=== PATIENT | female | born 1995 | race African-American/Black ===

== ENCOUNTER 2024-11-29 20:02 | Observation (INO) | payer OTHER, SELFPAY ==
[2024-11-29] VITALS (28 sets, daily range): BP systolic 113–162; BP diastolic 74–103; PULSE 102–147; TEMP 37; O2SAT 84–100; BMI 29.7
--- NOTE | 2024-11-29 20:05 | ECG_ITS ---
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
--- NOTE | 2024-11-29 20:06 | CT_ITS ---
The [address] [address] Patient Name: GUTIERREZ CHISHOLM MRN: [id number] date: 1995 Sex: F Assigned Patient Location: ER Current Patient Location: Accession/Order Number: [id number] Exam Date: 11/29/2024 21:51 Report Date: 11/29/2024 22:22 At the request of: MILKA DOWELL Procedure: CT head/brain wo con EXAMINATION: CT head/brain wo con HISTORY: fall, seizure COMPARISON: None. TECHNIQUE: CT head without intravenous contrast. Dose reduction techniques were achieved by using: automated exposure control and/or adjustment of mA and /or kV according to patient size and/or use of iterative reconstruction technique. FINDINGS: The ventricles and sulci are within normal limits in size and configuration for age. There is no evidence for acute intracranial hemorrhage. There are no foci of abnormal parenchymal attenuation. There is no mass effect or midline shift. There are no abnormal extraaxial fluid collections. CT/CT head/brain wo con IMPRESSION: Negative for acute intracranial hemorrhage or acute intracranial process. Electronically authenticated by: ATTILA STRATTON Date: 11/29/2024 22:22
--- NOTE | 2024-11-29 20:08 | ED.GENADUL1 ---
HPI HPI - General Adult General Chief complaint: Seizure Stated complaint: SEIZURE Time Seen by Provider: 11/29/24 20:05 History of Present Illness HPI narrative: 29-year-old female to the emergency department with chief complaint of seizure. Patient reports she has had a seizure in the past and used to take gabapentin for this. She does not recall the exact details of her workup for this. Patient reports that she is currently at [facility] for alcohol detox/rehabilitation. EMS reports that staff heard the patient fall out of bed and witnessed her having a generalized tonic-clonic seizure lasting approximately 1 to 2 minutes. No medications were given per the EMS report. Patient was postictal upon their arrival but her mental status is significantly improved at the time of arrival in the ER. Patient has no complaints at this time. Her last drink was this morning. She reports that she previously drank 1 pint a day of hard liquor. Related Data Home Medications ?Medication ?Instructions ?Recorded ?Confirmed gabapentin 300 mg capsule 300 mg PO TID 11/29/24 11/29/24 Allergies Allergy/AdvReac Type Severity Reaction Status Date / Time latex Allergy Intermediate Rash Verified 11/29/24 20:11 Opioid HPI Opioid Management Most Recent Opioid Data: Ur Phencyclidine Scrn Negative (NEGATIVE) 11/29/24 21:30 11/29/24 Review of Systems ROS Status of ROS 10 or more systems reviewed and unremarkable except as noted in history and below PFSH PFSH Social History Little interest or pleasure in doing things: not at all Feeling down, depressed, or hopeless: not at all Exam Narrative Exam Narrative: VITALS: I have reviewed the triage vital signs. GENERAL: Well developed, well appearing adult in no acute distress. NEURO: Alert and oriented. Moves all extremities. Face is symmetric and expressive. Tremor. EYES: PERRL. No scleral icterus or conjunctival injection. No discharge. HENT: Normocephalic, atraumatic. Hearing is grossly intact. Nares grossly patent and without discharge. Mucous membranes moist. NECK: No JVD. Patient moves neck without restriction. No midline cervical tenderness. CARDIO: Rhythm regular. Normal rate. No murmur, rub, or gallop. Pulses equal bilaterally in the upper and lower extremity. No lower extremity edema. PULM: Lungs clear to auscultation in all higuera. No wheezes, rales, or rhonchi. No conversational dyspnea. No splinting, stridor, or accessory muscle use. GI/: Abdomen is soft and non-tender. Normoactive bowel sounds. EXTREMITIES: Symmetric muscle bulk. No joint swelling. No clubbing, cyanosis, or deformity. SKIN: Warm and dry. Normal turgor. No rash or lesions appreciated. PSYCH: Mood, affect, and interaction is appropriate to the setting. Constitutional Vital Signs, click to edit/add: Last Vital Signs Temp 98.6 F 11/29/24 20:04 Pulse 117 H 11/30/24 00:11 Resp 20 11/30/24 00:11 BP 140/87 11/30/24 00:11 Pulse Ox 97 11/30/24 00:11 O2 Del Method Room Air 11/30/24 00:11 O2 Flow Rate 2 11/29/24 22:25 Course Vital Signs Vital signs: Vital Signs Temperature 98.6 F 11/29/24 20:04 Pulse Rate 102 H 11/29/24 20:04 Respiratory Rate 20 11/29/24 20:04 Blood Pressure 162/103 H 11/29/24 20:04 Pulse Oximetry 100 11/29/24 20:04 Oxygen Delivery Method Room Air 11/29/24 20:04 Temperature 98.6 F 11/29/24 20:04 Pulse Rate 117 H 11/30/24 00:11 Respiratory Rate 20 11/30/24 00:11 Blood Pressure 140/87 11/30/24 00:11 Pulse Oximetry 97 11/30/24 00:11 Oxygen Delivery Method Room Air 11/30/24 00:11 Oxygen Delivery Flow Rate 2 11/29/24 22:25 Medical Decision Making [facility] Narrative Medical decision making narrative: 29-year-old female to the emergency department with chief complaint of seizure. Cardiac, otherwise stable vitals. The patient is afebrile. She has a mild tremor. She is at [facility] for alcohol detox/withdrawal seizure. Her C-spine is cleared clinically. Seizure/head injury will order CT head. Basic labs. Ativan and Zofran for symptoms. Patient agrees with this plan. Initial CIWA:9 Patient had a another seizure shortly after arrival. She was given 2 of Ativan for this. She was postictal for approximately 30 minutes. She then returned to her baseline. Lab work reviewed and noted no major abnormalities. test is negative. She is hypomagnesemic. Multivitamin, thiamine, magnesium are ordered. Additional 1 mg of Ativan. Repeat CIWA: 7 Her vitals remained stable. She has had no further seizure-like activity. Her CIWA remains low. She is appropriate for admission. Case discussed with Kat[facility] who agrees to accept the patient to her service. The patient will be placed in the ICU. Lab Data Labs: Lab Results 11/29/24 11/29/24 11/29/24 Range/Units 20:29 21:30 22:22 WBC 6.4 (4.0-11.0) 10^3/uL RBC 3.88 L (4.20-5.40) 10^6/uL Hgb 12.3 (12.0-16.0) g/dL Hct 36.1 (36.0-48.0) % MCV 93.0 (81.0-99.0) fL MCH 31.7 (26.7-34.0) pg MCHC 34.1 (29.9-35.2) g/dL RDW 13.7 (11.0-15.0) % Plt Count 244 (150-450) 10^3/uL MPV 10.4 (9.5-13.5) fL Neut % (Auto) 68.0 (43.0-75.0) % Lymph % (Auto) 19.4 L (20.5-60.0) % [place] % (Auto) 9.6 (1.7-12.0) % Eos % (Auto) 0.8 L (0.9-7.0) % Baso % (Auto) 1.6 (0.2-2.0) % Neut # (Auto) 4.4 (1.4-6.5) 10^3/uL Lymph # (Auto) 1.3 (1.2-3.8) 10^3/uL [place] # (Auto) 0.6 (0.3-0.8) 10^3/uL Eos # (Auto) 0.1 (0.0-0.7) 10^3/uL Baso # (Auto) 0.1 (0.0-0.1) 10^3/uL Abs Immat Gran (auto) 0.04 H (0.00-0.03) 10^3/uL Imm/Tot Granulo (auto) 0.6 H (0.0-0.5) % PT 11.3 (9.0-11.6) sec INR 1.07 Sodium 134 L (136-145) mmol/L Potassium 4.0 (3.5-5.1) mmol/L Chloride 95 L (98-107) mmol/L Carbon Dioxide 17.9 L (21.0-32.0) mmol/L Anion Gap 25.1 BUN 4.0 L (7.0-18.0) mg/dL Creatinine 0.85 (0.55-1.02) mg/dL Est GFR ( Amer) >60 (>=60 mL/min/1.73m^2) Est GFR (Non-Af Amer) >60 (>=60 mL/min/1.73m^2) BUN/Creatinine Ratio 4.7 Glucose 105 (74-106) mg/dL Calcium 8.7 (8.5-10.1) mg/dL Magnesium 1.5 L (1.8-2.4) mg/dL Total Bilirubin 0.6 (0.2-1.0) mg/dL AST 233 H (15-37) U/L ALT 171 H (14-59) U/L Alkaline Phosphatase 59 (46-116) U/L Total Protein 9.0 H (6.4-8.2) g/dL Albumin 4.1 (3.4-5.0) g/dL Globulin 4.9 g/dL Albumin/Globulin Ratio 0.8 Urine Color Lt. yellow (YELLOW) Urine Clarity Clear (CLEAR) Urine pH 6.0 (5.0-9.0) Ur Specific [place] >=1.030 A (1.005-1.025) Urine Protein >=300 A (NEG/TRACE) mg/dL Urine Glucose (UA) Negative (NEGATIVE) mg/dL Urine Ketones 15 A (NEGATIVE) mg/dL Urine Occult Blood Moderate A (NEGATIVE) Urine Nitrite Negative (NEGATIVE) Urine Bilirubin Negative (NEGATIVE) Urine Urobilinogen 0.2 (0.2-1.0) EU/dL Ur Leukocyte Esterase Negative (NEGATIVE) Urine RBC 0-2 (0-2) #/HPF Urine WBC 0-2 A (NONE SEEN) #/HPF Ur Squamous Epith Cells Rare (NONE/RARE) #/LPF Urine Crystals None seen (None Seen) #/HPF Urine Bacteria Trace A (NONE SEEN) #/HPF Urine Casts None seen (NONE SEEN) #/LPF Urine Mucus None seen (NONE SEEN) Urine HCG, Qual Negative (NEGATIVE) Urine Opiates Screen Negative (NEGATIVE) Ur Buprenorphine Scrn Negative (NEGATIVE) Ur Oxycodone Screen Negative (NEGATIVE) Urine Methadone Screen Negative (NEGATIVE) Ur Barbiturates Screen Negative (NEGATIVE) U Tricyclic Antidepress Negative (NEGATIVE) Ur Phencyclidine Scrn Negative (NEGATIVE) Ur Amphetamines Screen Negative (NEGATIVE) U Methamphetamines Scrn Negative (NEGATIVE) U Benzodiazepines Scrn Negative (NEGATIVE) Urine Cocaine Screen Negative (NEGATIVE) U Cannabinoids Screen Negative (NEGATIVE) Ethanol Quant 5 mg/dL POC Glucose 88 (74-106) mg/dL Critical Care Time Critical Care Time Critical Care Time: Yes Total Critical Care Time: 31 Attestation: Critical Care Procedure Note Authorized and Performed by: Christian Jha DO Total critical care time: 31 min Due to a high probability of clinically significant, life threatening deterioration, the patient required my highest level of preparedness to intervene emergently and I personally spent this critical care time directly and personally managing the patient. This critical care time included obtaining a history; examining the patient; pulse oximetry; ordering and review of studies; arranging urgent treatment with development of a management plan; evaluation of patient's response to treatment; frequent reassessment; and, discussions with other providers. This critical care time was performed to assess and manage the high probability of imminent, life-threatening deterioration that could result in multi-organ failure. It was exclusive of separately billable procedures and treating other patients and teaching time. Please see MDM section and the rest of the note for further information on patient assessment and treatment. Discharge Plan Discharge Chief Complaint: Seizure Clinical Impression: Alcohol withdrawal seizure, Hypomagnesemia Patient Disposition: Admitted As Inpatient Time of Disposition Decision: 01:11 Condition: Fair Prescriptions / Home Meds: No Action gabapentin 300 mg capsule 300 mg PO TID Print Language: Russian Referrals: Physician,Non-Staff, MD [Primary Care Provider] - 1 week
[2024-11-29] MEDS: LORAZEPAM 2 MG/ML VIAL IV (20:25)
[2024-11-29] MEDS: ONDANSETRON PF 4 MG/2 ML VIAL IV (20:34)
[2024-11-29 20:45] LABS: Basophils Absolute Auto 0.1 10^3/uL (0.0-0.1); Basophils Percent Auto 1.6 % (0.2-2.0); Eosinophils Absolute Auto 0.1 10^3/uL (0.0-0.7); Eosinophils Percent Auto 0.8 % (0.9-7.0); Hematocrit 36.1 % (36.0-48.0); Hemoglobin 12.3 g/dL (12.0-16.0); Immature Granulocytes Abs Auto 0.04 10^3/uL (0.00-0.03); Immature Granulocytes Pct Auto 0.6 % (0.0-0.5); Lymphocytes Absolute Auto 1.3 10^3/uL (1.2-3.8); Lymphocytes Percent Auto 19.4 % (20.5-60.0); Mean Corpuscular HGB Conc 34.1 g/dL (29.9-35.2); Mean Corpuscular Hemoglobin 31.7 pg (26.7-34.0); Mean Platelet Volume 10.4 fL (9.5-13.5); Monocytes Absolute Auto 0.6 10^3/uL (0.3-0.8); Monocytes Percent Auto 9.6 % (1.7-12.0); Neutrophils Absolute Auto 4.4 10^3/uL (1.4-6.5); Platelet Count 244 10^3/uL (150-450); Red Blood Count 3.88 10^6/uL (4.20-5.40); Red Cell Distribution Width 13.7 % (11.0-15.0); White Blood Count 6.4 10^3/uL (4.0-11.0)
[2024-11-29 21:01] LABS: INR 1.07; Prothrombin Time 11.3 sec (9.0-11.6)
--- NOTE | 2024-11-29 21:14 | XR_ITS ---
The [address] [address] Patient Name: GUTIERREZ CHISHOLM MRN: [id number] date: 1995 Sex: F Assigned Patient Location: ER Current Patient Location: Accession/Order Number: [id number] Exam Date: 11/29/2024 21:51 Report Date: 11/29/2024 22:24 At the request of: MILKA DOWELL Procedure: XR chest 1V EXAMINATION: XR chest 1V HISTORY: hypoxia COMPARISON: None. FINDINGS: Low lung volumes. There is no focal airspace consolidation. There is no appreciable pneumothorax or pleural effusion. The pulmonary vascularity is within normal limits for technique. The cardiomediastinal silhouette is within normal limits. XR/XR chest 1V IMPRESSION: Low lung volumes. Lungs are clear of airspace infiltrates. Electronically authenticated by: ATTILA STRATTON Date: 11/29/2024 22:24
[2024-11-29 21:17] LABS: Alanine Aminotransferase 171 U/L (14-59); Albumin Globulin Ratio 0.8; Albumin Level 4.1 g/dL (3.4-5.0); Alkaline Phosphatase 59 U/L (46-116); Anion Gap 25.1; Aspartate Amino Transferase 233 U/L (15-37); BUN Creatinine Ratio 4.7; Bilirubin Total 0.6 mg/dL (0.2-1.0); Calcium 8.7 mg/dL (8.5-10.1); Carbon Dioxide 17.9 mmol/L (21.0-32.0); Chloride 95 mmol/L (98-107); Estimated GFR (African America >60 (>=60 mL/min/1.73m^2); Estimated GFR (Non-African Ame >60 (>=60 mL/min/1.73m^2); Ethanol 5 mg/dL; Globulin 4.9 g/dL; Glucose 105 mg/dL (74-106); Sodium 134 mmol/L (136-145)
[2024-11-29 21:25] LABS: Magnesium 1.5 mg/dL (1.8-2.4)
--- NOTE | 2024-11-29 21:30 | PC.NURSE ---
Pt had a thirty second seizure at 2119 . Physician aware
[2024-11-29 21:53] LABS: Amphetamine Screen Urine NEGATIVE (NEGATIVE); Barbiturates Screen Urine NEGATIVE (NEGATIVE); Benzodiazepines Screen Urine NEGATIVE (NEGATIVE); Buprenorphine Screen Urine NEGATIVE (NEGATIVE); Cannabinoid Screen Urine NEGATIVE (NEGATIVE); Cocaine Screen Urine NEGATIVE (NEGATIVE); Methadone Screen Urine NEGATIVE (NEGATIVE); Methamphetamines Screen Urine NEGATIVE (NEGATIVE); Opiate Screen Urine NEGATIVE (NEGATIVE); Oxycodone Screen Urine NEGATIVE (NEGATIVE); Phencyclidine Screen Urine NEGATIVE (NEGATIVE); Tricyclic Antidepressant Urine NEGATIVE (NEGATIVE)
[2024-11-29 21:58] LABS: Bilirubin Urine NEGATIVE (NEGATIVE); Blood Urine MODERATE (NEGATIVE); Clarity Urine CLEAR (CLEAR); Color Urine LT. YELLOW (YELLOW); Glucose Urine UA NEGATIVE (NEGATIVE); Ketones Urine 15 mg/dL (NEGATIVE); Leukocyte Esterase Urine NEGATIVE (NEGATIVE); Nitrite Urine NEGATIVE (NEGATIVE); Protein Urine >=300 mg/dL (NEG/TRACE); Specific Gravity Urine >=1.030 (1.005-1.025); Urobilinogen Urine 0.2 EU/dL (0.2-1.0)
[2024-11-29 22:00] LABS: HCG Qualitative Urine* NEGATIVE (NEGATIVE); Internal Control Within Normal Limits
[2024-11-29 22:08] LABS: Bacteria Urine TRACE #/HPF (NONE SEEN); Cast Seen? NONE SEEN #/LPF (NONE SEEN); Crystals Seen? None Seen #/HPF (None Seen); Mucus Urine NONE SEEN (NONE SEEN); RBC Urine 0-2 #/HPF (0-2); Squamous Epithelial Cell Urine RARE #/LPF (NONE/RARE); WBC Urine 0-2 #/HPF (NONE SEEN)
[2024-11-29 22:25] LABS: Glucometer 88 mg/dL (74-106)
[2024-11-29] MEDS: MAGNESIUM SULFATE IN WATER 2 GM/50 ML PREMIX IV (22:37)
[2024-11-29] MEDS: THIAMINE MONONITRATE (VIT B1) 100 MG TABLET PO (22:43)
[2024-11-29] MEDS: MULTIVITAMIN TABLET 1 TAB PO (22:43)
[2024-11-30] VITALS (46 sets, daily range): BP systolic 119–151; BP diastolic 84–111; PULSE 91–126; TEMP 37.2–37.7; O2SAT 83–113; BMI 30.6
--- NOTE | 2024-11-30 00:23 | PC.NURSE ---
Pt attempted to get out of bed to use restroom by herself. Pt slid down to end of bed and proceeded to fall onto the floor. Both pt side rails were up with seizure pads attached and pt call light was in place. Pt received no injury from fall and was educated on calling for assistance when needing to use the restroom and shown again how to use call light for assistance. bedside commode placed in room. Vitals taken and all were WNL. Proper fall documentation will be completed on patient. Physician aware. Pt verbalizes understanding of calling for help if assisstance is needed.
[2024-11-30] MEDS: LORAZEPAM 2 MG/ML VIAL 1 MG IV (00:48)
[2024-11-30] MEDS: MULTIVIT INFUSN,ADULT 4,VIT K 10 ML, FOLIC ACID 1 MG, THIAMINE HCL 100 MG in DEXTROSE 5... 250 ML IV (03:34)
[2024-11-30] MEDS: THIAMINE HCL 200 MG/2 ML VIAL 100 MG IM (03:38)
[2024-11-30] MEDS: 0.9 % SODIUM CHLORIDE 1,000 ML 125 ML IV ×2 (03:39→07:35)
[2024-11-30 05:00] LABS: Basophils Absolute Auto 0.1 10^3/uL (0.0-0.1); Basophils Percent Auto 1.5 % (0.2-2.0); Eosinophils Absolute Auto 0.1 10^3/uL (0.0-0.7); Hematocrit 35.5 % (36.0-48.0); Hemoglobin 12.1 g/dL (12.0-16.0); Immature Granulocytes Abs Auto 0.04 10^3/uL (0.00-0.03); Immature Granulocytes Pct Auto 0.5 % (0.0-0.5); Lymphocytes Absolute Auto 1.7 10^3/uL (1.2-3.8); Lymphocytes Percent Auto 22.1 % (20.5-60.0); Mean Corpuscular HGB Conc 34.1 g/dL (29.9-35.2); Mean Corpuscular Hemoglobin 31.3 pg (26.7-34.0); Mean Corpuscular Volume 91.7 fL (81.0-99.0); Mean Platelet Volume 10.3 fL (9.5-13.5); Monocytes Absolute Auto 0.9 10^3/uL (0.3-0.8); Monocytes Percent Auto 11.5 % (1.7-12.0); Neutrophils Absolute Auto 4.9 10^3/uL (1.4-6.5); Neutrophils Percent Auto 63.4 % (43.0-75.0); Platelet Count 234 10^3/uL (150-450); Red Blood Count 3.87 10^6/uL (4.20-5.40); Red Cell Distribution Width 13.5 % (11.0-15.0); White Blood Count 7.8 10^3/uL (4.0-11.0)
[2024-11-30 05:16] LABS: Alanine Aminotransferase 156 U/L (14-59); Albumin Globulin Ratio 0.9; Alkaline Phosphatase 55 U/L (46-116); Anion Gap 14.8; Aspartate Amino Transferase 226 U/L (15-37); BUN Creatinine Ratio 6.6; Calcium 8.7 mg/dL (8.5-10.1); Carbon Dioxide 26.9 mmol/L (21.0-32.0); Chloride 97 mmol/L (98-107); Estimated GFR (African America >60 (>=60 mL/min/1.73m^2); Estimated GFR (Non-African Ame >60 (>=60 mL/min/1.73m^2); Globulin 4.7 g/dL; Glucose 128 mg/dL (74-106); Magnesium 2.7 mg/dL (1.8-2.4); Potassium 3.7 mmol/L (3.5-5.1); Sodium 135 mmol/L (136-145); Total Protein 8.7 g/dL (6.4-8.2)
[2024-11-30] MEDS: CLORDIAZEPOXIDE HCl 25 MG CAPSULE 50 MG PO (07:32)
[2024-11-30] MEDS: HYDRALAZINE HCL 20 MG/ML VIAL 10 MG IVP (07:32)
--- NOTE | 2024-11-30 07:45 | US_ITS ---
[address] [address] Patient Name: GUTIERREZ CHISHOLM MRN: [id number] date: 1995 Sex: F Assigned Patient Location: ICU Current Patient Location: ICU Accession/Order Number: [id number] Exam Date: 11/30/2024 07:59 Report Date: 11/30/2024 09:12 At the request of: PRATIMA SARAVIA Procedure: US right upper quadrant EXAMINATION: US right upper quadrant HISTORY: Elevated LFT, alcohol abuse COMPARISON: No relevant comparison available. TECHNIQUE: Transabdominal evaluation of the right upper quadrant. FINDINGS: LIVER: Increased echogenicity suggestive of fatty infiltration. Color Doppler demonstrates patent hepatic veins. PORTAL VEIN: Duplex Doppler demonstrates normal hepatopetal flow pattern with flow velocity averaging 21 cm/s. GALLBLADDER: No visible gallstones, wall thickening, or pericholecystic free fluid. Negative sonographic Boggs's sign. BILIARY: No abnormal dilation or stones. Common bile duct diameter is within normal limits. PANCREAS: Limited evaluation. No visible mass, abnormal atrophy, or duct dilation. KIDNEY: No hydronephrosis. No visible mass or stones. Size: 9.9 x 4.9 x 4.9 cm US/US right upper quadrant IMPRESSION: 1. Fatty infiltration of the liver. 2. Normal hepatopedal flow within portal vein. No significant portal hypertension. Electronically authenticated by: IGLESIA FRANCISCO Date: 11/30/2024 09:12
[2024-11-30] MEDS: MULTIVITAMIN TABLET 1 TAB PO (08:26)
[2024-11-30] MEDS: FOLIC ACID 1 MG TABLET PO (08:26)
--- NOTE | 2024-11-30 09:30 | CM.NOTE ---
Rounds made with Dr. Rodríguez pt will discharge back to [facility] today for inpatient alcohol rehab.
--- NOTE | 2024-11-30 13:03 | PM.HP ---
HPI H&P: HPI History of Present Illness Chief complaint: SEIZURE, ALCOHOL WITHDRAWAL Narrative: 29 y/o female with a history of alcohol abuse currently at alcohol detox program presented to ER after a seizure. Staff heard patient fall out of bed and witnessed and generalized tonic clonic seizure. Last alcohol use was earlier in day. Reports prior alcohol withdrawal seizures and on neurontin in past. Transferred to ER and had 2 more seizures in ER. Given ativan each time. Patient confused and post-ictal after each event. Admitted for monitoring. Seizure precautions in place and using CIWA scale with librium and ativan. Feels well this am. Alert and oriented. No seizure activity since admission. Labs stable. Opioid HPI Opioid Management Most Recent Pain and Opioid Data: Last Pain Assessment 11/30/24 10:00 Last ORT Total Score 4 11/30/24 01:49 11/30/24 Last ORT Risk Category Moderate Risk 11/30/24 01:49 11/30/24 Ur Phencyclidine Scrn Negative (NEGATIVE) 11/29/24 21:30 11/29/24 Review of Systems ROS Constitutional Denies: fever, chills or night sweats Cardiovascular Denies: chest pain or palpitations Respiratory Denies: shortness of breath, cough or wheezing Gastrointestinal Denies: abdominal pain, nausea, vomiting or diarrhea Genitourinary Denies: painful urination PFSH PFSH Social History Little interest or pleasure in doing things: not at all Feeling down, depressed, or hopeless: not at all Meds Home Medications and Allergies Home Medications ?Medication ?Instructions ?Recorded ?Confirmed ?Type gabapentin 300 mg capsule 300 mg PO TID 11/29/24 11/29/24 History Allergies Allergy/AdvReac Type Severity Reaction Status Date / Time latex Allergy Intermediate Rash Verified 11/29/24 20:11 Exam Constitutional Vital Signs, click to edit/add: Last Vital Signs Temp 99 F 11/30/24 07:38 Pulse 117 H 11/30/24 10:00 Resp 16 11/30/24 07:38 BP 146/111 H 11/30/24 07:38 Pulse Ox 98 11/30/24 10:01 O2 Del Method Room Air 11/30/24 10:01 O2 Flow Rate 2 11/30/24 04:00 Documenting provider has reviewed patient's vital signs: yes Common normals: no apparent distress, oriented x3 and alert HENMT Common normals: normocephalic Eye Common normals: PERRL and EOMs intact bilaterally Respiratory Common normals: normal respiratory effort and clear to auscultation bilaterally Cardio Common normals: regular rate, regular rhythm, no gallops, no murmurs and no rub GI Common normals: Normal to inspection, nondistended, normoactive bowel sounds present and non-tender Extremity Common normals: no pedal edema Results Labs Labs: Short CBC 11/29/24 11/30/24 Range/Units 20:29 04:35 WBC 6.4 7.8 (4.0-11.0) 10^3/uL Hgb 12.3 12.1 (12.0-16.0) g/dL Hct 36.1 35.5 L (36.0-48.0) % Plt Count 244 234 (150-450) 10^3/uL BMP 11/29/24 11/30/24 20:29 04:35 Sodium 134 L 135 L Potassium 4.0 3.7 Chloride 95 L 97 L Carbon Dioxide 17.9 L 26.9 BUN 4.0 L 5.0 L Creatinine 0.85 0.76 Glucose 105 128 H Calcium 8.7 8.7 Liver Function 11/29/24 11/30/24 Range/Units 20:29 04:35 Total Bilirubin 0.6 1.0 (0.2-1.0) mg/dL AST 233 H 226 H (15-37) U/L ALT 171 H 156 H (14-59) U/L Alkaline Phosphatase 59 55 (46-116) U/L Albumin 4.1 4.0 (3.4-5.0) g/dL Urine 11/29/24 Range/Units 21:30 Urine Color Lt. yellow (YELLOW) Urine Clarity Clear (CLEAR) Urine pH 6.0 (5.0-9.0) Ur Specific [place] >=1.030 A (1.005-1.025) Urine Protein >=300 A (NEG/TRACE) mg/dL Urine Glucose (UA) Negative (NEGATIVE) mg/dL Assessment and Plan Assessment and Plan (1) Alcohol withdrawal seizure: (2) Hypomagnesemia: (3) Alcohol abuse: (4) Elevated liver function tests: Plan Presented with alcohol withdrawal seizure and responded well to ativan. Seizure free since admission. Vitals and labs stable. Patient feels well and back to baseline. Patient medically cleared for transfer back to alcohol detox program.
== END 2024-11-30 11:05 ==
LOC: ER 11-30 01:11 → ICU 11-30 11:05
PROVIDERS: Registered Nurse; Admitting Provider Family Medicine; Emergency Provider Student in an Organized Health Care Education/Training Program; Visit Provider Family Medicine
DX: F10.139 Alcohol abuse with withdrawal, unspecified (principal); G40.89 Other seizures; E83.42 Hypomagnesemia; Y90.0 Blood alcohol level of less than 20 mg/100 ml; R79.89 Other specified abnormal findings of blood chemistry
CPT/HCPCS: 36415; 70450; 71045; 76705; 80053; 80307; 80320; 81001; 83735; 84703; 85025; 85610; 93005; 94761; 96365; 96366; 96367; 96372; 96375; 96376; 99285; G0378; J0360; J2060; J2405; J3411; J3475